=== PATIENT | female | born 1965 | race Caucasian/White ===

== ENCOUNTER 2016-11-10 06:07 | Day surgery (SDC) | payer OTHER ==
[~2016-11-10] VITALS: Ht 175.3 cm; Wt 54.4 kg
[~2016-11-10 06:07] MED LIST: ULTRAM50 MG PO
[2016-11-10 06:50] VITALS: BP 103/67; Ht 175.3 cm; Wt 54.4 kg
[2016-11-10 07:21] LABS: HEMATOCRIT 43.3 % (36.0-48.0); HEMOGLOBIN 14.2 g/dL (12-16); MCH 30.9 pg (26.0-34.0); MCHC 32.8 g/dL (31.0-37.0); MCV 94.3 fL (80.0-100.0); MEAN PLATELET VOLUME 10.6 fL (7.4-10.4); RBC 4.59 10x6/uL (4.00-5.40); RDW 12.4 % (11.5-14.5); WBC 4.8 10x3/uL (4.8-10.8)
[2016-11-10] MEDS ORDERED: HYDROCODONE-APA1 TAB PO (09:07)
--- NOTE | 2016-11-10 09:22 | NUR ---
VANCOMYCIN 1 GRAM IN 250CC OF NORMAL SALINE INFUSING ON ADMIT
--- NOTE | 2016-11-10 10:44 | NUR ---
1030--IV DC'D, PT UP TO DRESS AT THIS TIME. TADEO STALLINGS 1044--DISCHARGE INSTRUCTIONS GIVEN, PT VERBALIZES UNDERSTANDING. PT OFF UNIT VIA WC. TADEO STALLINGS
--- NOTE | 2016-11-24 18:23 | OP ---
PATIENT NAME: JASIEL MCKINNEY MEDICAL RECORD: [id number] :61 LOCATION:[facility] ADMISSION DATE: SURGEON: INDER BETH MD DATE OF OPERATION: 11/10/2016 PREOPERATIVE DIAGNOSES: Adhesive capsulitis with impingement syndrome, acromioclavicular arthritis of the right shoulder. POSTOPERATIVE DIAGNOSES: Adhesive capsulitis with impingement syndrome, acromioclavicular arthritis of the right shoulder. PROCEDURES: 1. Manipulation under anesthesia. 2. Subacromial decompression, acromioplasty and bursectomy done arthroscopically. 3. Arthroscopic distal clavicle excision -- 1 cm through a separate anterior arthroscopic portal. OPERATIVE SUMMARY IN DETAIL: After obtaining the appropriate preoperative orthopedic surgery consent as well as anesthetic consultation, evaluation and clearance, the patient was brought to the operating room and placed on the operating table in supine position. After adequate general laryngeal mask was administered, the patient was placed in a left lateral decubitus position. All pressure points were well padded to include down leg peroneal pad as well as axillary roll. The patient was held firmly to the operating table using the vacuum pack suction system. Right upper extremity and shoulder were prepped and draped in a routine sterile fashion before putting the arm in the traction boot and the arm was manipulated while holding the scapula stable. It was first manipulated in abduction followed by external rotation, internal rotation, forward flexion and then extension. The arm was then placed in the Arthrex traction boom at 30 degrees of forward flexion, 30 degrees of abduction with 10 pounds of traction laterally. Arthroscopy was established in the glenohumeral joint and posterior portal. portal. The anterior was established and the glenohumeral joint was relatively pristine. In the subacromial space, the coracoacromial ligament was excoriated. This was taken down, formal acromioplasty was performed and this was followed by distal clavicle excision of 1 cm with resection of osteophyte. Having completed this, arthroscopy portals were closed in routine interrupted fashion using 4-0 Prolene. Sterile dressings were applied. The patient was awakened, taken to recovery in stable condition. All final needle and sponge counts were correct. TRANSINT:[id number] Voice Confirmation ID: [id number] DOCUMENT ID: [id number] INDER BETH MD at 1823 CC: [id number] DICTATION DATE: 11/10/1605 FREELANCE DISPLAYER: 11/10/1621 [facility] 11/10/16 [id number] [place] [address]
== END 2016-11-10 10:44 | disposition home or self-care (01) ==
LOC: D.OPS 06:07 → D.PAN 10:20 → D.OPS 10:44 → D.PAN 11:40 → D.OPS 11:40
PROVIDERS: Anesthesiology
DX: M75.01 Adhesive capsulitis of right shoulder (principal); M75.41 Impingement syndrome of right shoulder; M13.811 Other specified arthritis, right shoulder

== ENCOUNTER 2017-01-08 11:32 | Day surgery (SDC) | payer OTHER ==
[~2017-01-08] VITALS: Ht 175.3 cm; Wt 54.4 kg
[~2017-01-08 11:32] MED LIST changes: +HYDROCODONE-APA1 TAB PO
[2017-01-08 12:10] LABS: HEMOGLOBIN 12.9 g/dL (12-16); MCH 30.4 pg (26.0-34.0); MCHC 32.3 g/dL (31.0-37.0); MCV 94.1 fL (80.0-100.0); MEAN PLATELET VOLUME 10.3 fL (7.4-10.4); RBC 4.25 10x6/uL (4.00-5.40); RDW 12.2 % (11.5-14.5); WBC 3.6 10x3/uL (4.8-10.8)
[2017-01-08 13:11] VITALS: BP 93/57; Ht 175.3 cm; Wt 54.4 kg
--- NOTE | 2017-01-08 14:13 | NUR ---
PATIENT LEFT ON OR STRETCHER FOR PROCEDURE, SRIDHAR.
--- NOTE | 2017-01-12 18:57 | OP ---
PATIENT NAME: JASIEL MCKINNEY MEDICAL RECORD: [id number] :61 LOCATION:[facility] ADMISSION DATE: SURGEON: INDER BETH MD DATE OF OPERATION: 01/08/2017 PREOPERATIVE DIAGNOSIS: Postoperative adhesive capsulitis of the right shoulder. POSTOPERATIVE DIAGNOSIS: Postoperative adhesive capsulitis of the right shoulder. PROCEDURE: Right shoulder manipulation. SURGEON: Inder Beth MD. ANESTHESIA: General. INTRAOPERATIVE COMPLICATIONS: None. SUMMARY OF PATHOLOGIC FINDINGS: Essentially consistent with the preoperative diagnosis, the patient did have adhesive capsulitis that was very amenable to manipulation. OPERATIVE SUMMARY IN DETAIL: After obtaining the appropriate preoperative orthopedic surgery consent as well as anesthetic consultation, evaluation and clearance, the patient was brought to the operating room and placed on the operating table in supine position. After adequate TIVA anesthesia was administered, the scapula was stabilized, the shoulder was first manipulated in abduction followed by external rotation, internal rotation, flexion and extension. Having completed this, the patient was awakened and taken back to outpatient in stable condition. TRANSINT:[id number] Voice Confirmation ID: [id number] DOCUMENT ID: [id number] INDER BETH MD at 1857 CC: [id number] DICTATION DATE: 01/12/17 0848 HOUSEHOLD PERSONAL ASSISTANT: 01/12/17 1101 [facility] 01/08/17 [id number] [place] [address]
== END 2017-01-08 15:45 | disposition home or self-care (01) ==
LOC: D.OPS 11:32 → D.PAN 13:30 → D.OPS 14:15
PROVIDERS: Anesthesiology
DX: M25.511 Pain in right shoulder (principal); M75.01 Adhesive capsulitis of right shoulder